=== PATIENT | male | born 1935 | race Caucasian/White ===

== ENCOUNTER → 2016-06-10 | Outpatient (CLI) | payer MEDICARE, OTHER ==
[2016-06-10 10:28] LABS: CHLORIDE,CL 105 mmol/L (98-110); SODIUM,NA 139 mmol/L (136-146)
== END ==
LOC: MW.CHIM 09:24
PROVIDERS: ATTEND Internal Medicine
DX: I10 Essential (primary) hypertension (principal); E11.9 Type 2 diabetes mellitus without complications; R97.20 Elevated prostate specific antigen [PSA]
CPT/HCPCS: 36415; 80053; 80061; 83036; 84153; 85025; 99214

== ENCOUNTER 2018-07-01 06:26 | Day surgery (SDC) | payer MEDICARE, OTHER ==
[~2018-07-01 06:26] MED LIST: Lactated Ringers 1,000 ML IV SCH; Sodium Chloride 0.9% 10 ML SDV IV PRN; Sodium Chloride 0.9% 2.5 ML Syringe FLUSH PRN
[2018-07-01] MEDS ORDERED: Bupivacaine 0.25% 10 ML SDV ONE (07:13)
[2018-07-01] MEDS ORDERED: Aspirin 81 MG Tab.Chew PO ONE (07:20)
--- NOTE | 2018-07-01 07:20 | PCM.PREANE ---
Preanesthetic Assessment - Anesthesia/Transfusion/Family Hx Anesthesia History: Prior Anesthesia Without Reaction Family History of Anesthesia Reaction: No Transfusion History: No Prior Transfusion(s) - Review of Systems General: No Symptoms Pulmonary: No Symptoms Cardiovascular: No Symptoms Gastrointestinal: No Symptoms Neurological: No Symptoms Other: Reports: None - Physical Assessment NPO Status Date: 06/30/18 Height: 6 ft 1 in Weight: 113.852 kg ASA Class: 3 Mental Status: Alert & Oriented x3 Airway Class: Mallampati = 2 Dentition: Reports: Normal Dentition ROM/Head Extension: Full Lungs: Clear to Auscultation, Normal Respiratory Effort Cardiovascular: Regular Rate, Regular Rhythm - Allergies Allergies/Adverse Reactions: Allergies Allergy/AdvReac Type Severity Reaction Status Date / Time codeine Allergy Rash Verified 06/29/18 09:41 Penicillins Allergy Rash Verified 06/29/18 09:41 contrast dye Allergy Rash Uncoded 06/29/18 09:41 - Blood Blood Available: No - Anesthesia Plan Pre-Op Medication Ordered: Other (asa pre op) - Acknowledgements Anesthesia Type Planned: General Anesthesia Pt an Appropriate Candidate for the Planned Anesthesia: Yes Alternatives and Risks of Anesthesia Discussed w Pt/Guardian: Yes Pt/Guardian Understands and Agrees with Anesthesia Plan: Yes Additional Comments: PMH: CAD- s/p AMI, s/p coronary stent 2003- on aspirin until 3-4 days ago, told to stop by surgeons office, [facility]- has hearing aids, CKD3, DM2- sugar this am 89 , htn, hld, BPH, prostate cancer PLAN: GET PreAnesthesia Questionnaire HEENT History: Reports: Cataract, Hard of Hearing, Other (See Below) Other HEENT History: has bilateral 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" Cardiovascular History: Reports: High Cholesterol, Hypertension, [place] Gastrointestinal History: Reports: Other (See Below) Other Gastrointestinal History: occasional heartburn- takes OTC meds Genitourinary History: Reports: BPH, Prostate Disorder, Renal Calculus Other Genitourinary History: hx of prostate cancer, passes all kidney stones Endocrine/Metabolic History: Reports: Diabetes, Type II, Obesity/BMI 30+ Oncologic (Cancer) History: Reports: Prostate - Past Surgical History Head Surgeries/Procedures: Reports: None HEENT Surgical History: Reports: Cataract Surgery Cardiovascular Surgical History: Reports: Coronary Artery Stent Other Cardiovascular Surgeries/Procedures: [place] 25 years ago- 2 stents inserted- no problems since GI Surgical History: Reports: Cholecystectomy - SUBSTANCE USE Smoking Status *Q: Never Smoker Recreational Drug Use History: No - HOME MEDS Home Medications: Home Meds Aspirin [Adult Low Dose Aspirin EC] 81 mg PO DAILY 06/29/18 [History] Carvedilol 3.125 mg PO DAILY 06/29/18 [History] Cholecalciferol (Vitamin D3) [Vitamin D3] 1,000 unit PO DAILY 06/29/18 [History] Cumin 500 mg PO DAILY 06/29/18 [History] Multivit-Min/FA/Lycopene/Lut [Centrum Silver Tablet] 1 tab PO DAILY 06/29/18 [ History] [place]-3/DHA/Epa/Fish Oil [[place] 3 500 Softgel] 1 cap PO BID 06/29/18 [History] Pravastatin Sodium 10 mg PO BID 06/29/18 [History] glipiZIDE [Glipizide ER] 5 mg PO QAM 06/29/18 [History] metFORMIN [Glucophage XR] 500 mg PO QAM 06/29/18 [History] - CURRENT (IN HOUSE) MEDS Current Meds: Current Medications Clindamycin Phosphate 400 mg/ (Sodium Chloride) 52.6667 mls @ 210.667 mls/hr IV ONETIME CHRIS Lactated Ringer's (Ringers, Lactated) 1,000 mls @ 100 mls/hr IV ASDIRECTED CHRIS Sodium Chloride (Saline Flush) 10 ml FLUSH ASDIRECTED PRN PRN Reason: Keep Vein Open Sodium Chloride (Saline Flush) 2.5 ml FLUSH ASDIRECTED PRN PRN Reason: Keep Vein Open Sodium Chloride (Normal Saline) 10 ml IV ASDIRECTED PRN PRN Reason: IV Use Discontinued Medications Bupivacaine HCl (Sensorcaine-Mpf 0.25%) Confirm Administered Dose 10 ml .ROUTE .STK-MED ONE Stop: 07/01/18 07:14
[2018-07-01] MEDS ORDERED: fentaNYL 250 MCG/5 ML SDV ONE (07:28)
[2018-07-01] MEDS ORDERED: Aspirin 81 MG Tab.Chew ONE (07:28)
[2018-07-01] MEDS ORDERED: Propofol 200 MG/20 ML SDV ONE (07:28)
[2018-07-01] MEDS ORDERED: CLINDAMYCIN PHOSPHATE IV SCH ×2 (07:50→09:00)
[2018-07-01] MEDS ORDERED: SODIUM CHLORIDE 0.9% IV SCH ×2 (07:50→09:00)
[2018-07-01] MEDS ORDERED: Clindamycin Phosphate in D5W 50 ML IV ONE (08:30)
[2018-07-01] MEDS ORDERED: Phenylephrine/Normal Saline 100 MCG/ML 10 ML Syringe ONE (08:44)
[2018-07-01] MEDS ORDERED: ePHEDrine 50 MG/ML SDV ONE (08:57)
[2018-07-01] MEDS ORDERED: Ondansetron 4 MG/2 ML SDV ONE (08:57)
[2018-07-01] MEDS ORDERED: Atropine 1 MG/ML SDV IVPUSH PRN ×2 (09:31)
[2018-07-01] MEDS ORDERED: Naloxone 0.4 MG/ML Syringe IVPUSH PRN (09:31)
[2018-07-01] MEDS ORDERED: 50% Dextrose in Water 50 ML Syringe IVPUSH PRN (09:31)
[2018-07-01] MEDS ORDERED: fentaNYL 100 MCG/2 ML SDV IVPUSH PRN (09:31)
[2018-07-01] MEDS ORDERED: Albuterol 0.083% 2.5 MG/3 ML Neb Soln NEB PRN (09:31)
[2018-07-01] MEDS ORDERED: EPINEPHrine 1 MG/1 ML Amp IVPUSH PRN (09:31)
--- NOTE | 2018-07-01 10:02 | PCM.POSTAN ---
POST ANESTHESIA ASSESSMENT - MENTAL STATUS Mental Status: Alert, Oriented - VITAL SIGNS Pulse Rate: 83 SaO2: 96 (room air) Resp Rate: 13 Blood Pressure: 133/75 - RESPIRATORY Respiratory Status: Respiratory Rate WNL, Airway Patent, O2 Saturation Stable - CARDIOVASCULAR CV Status: Pulse Rate WNL, Blood Pressure Stable - GASTROINTESTINAL GI Status: No Symptoms - PAIN Pain Score: 0 (comfortable, no pain) - POST OP HYDRATION Hydration Status: Adequate & Stable - OBSERVATIONS Free Text/Narrative:: No anesthesia complication noted. Pt comfortable. No complaints.
--- NOTE | 2018-07-01 11:04 | OR ---
SURGEON: Jeronimo Steele M.D. 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 POSTOPERATIVE DIAGNOSIS: Adenoid carcinoma of the prostate. OPERATION: Bilateral simple orchiectomy. DESCRIPTION OF PROCEDURE: The patient was given general anesthesia in the supine position. External genital area was prepped and draped in sterile drapes. A transverse incision was made in the right scrotal sac. The testicle was delivered to the outside. The cord structures were suture ligated with 0 chromic x2. That cord was sutured in 2 bites. With that done, the skin was then closed using 3-0 chromic interrupted mattress sutures. The left side was handled in the same fashion. Again, 0 chromic was used for suture ligature over the cord structures and the skin was closed in the same way. The specimens were delivered and the patient was moved to recovery room in good condition. RUDY / ZOIE /[id number]
--- NOTE | 2018-07-01 11:12 | PCM48HPAN ---
Post Anesthesia Note - EVALUATION WITHIN 48HRS OF ANESTHETIC Vital Signs in Normal Range: Yes Patient Participated in Evaluation: Yes Respiratory Function Stable: Yes Airway Patent: Yes Cardiovascular Function Stable: Yes Hydration Status Stable: Yes Pain Control Satisfactory: Yes Nausea and Vomiting Control Satisfactory: Yes Mental Status Recovered: Yes Pulse Rate: 83 Resp Rate: 16 Blood Pressure: 133/75
[2018-07-01] MEDS ORDERED: Sodium Chloride 0.9% 10 ML Syringe FLUSH PRN (13:35)
[2018-07-01] MEDS ORDERED: Non-Formulary Medication 1 Each (Pravastatin Sodium [Pravastatin Sodium] 10 MG) PO SCH (21:00)
[2018-07-01] MEDS ORDERED: Fish Oil/Omega-3 Fatty Acids 1 Gm Cap PO SCH (21:00)
[2018-07-02] MEDS ORDERED: [UNRECOGNIZED DRUG - OTHER] PO SCH (09:00)
[2018-07-02] MEDS ORDERED: MULTIVIT MIN PO SCH (09:00)
[2018-07-02] MEDS ORDERED: Aspirin 81 MG Tab.EC PO SCH (09:00)
[2018-07-02] MEDS ORDERED: Cholecalciferol (Vitamin D3) 1,000 Unit Tab PO SCH (09:00)
[2018-07-02] MEDS ORDERED: metFORMIN 500 MG Tab.ER PO SCH (09:00)
[2018-07-02] MEDS ORDERED: Carvedilol 3.125 MG Tab PO SCH (09:00)
[2018-07-02] MEDS ORDERED: LYCOPENE PO SCH (09:00)
[2018-07-02] MEDS ORDERED: glipiZIDE 5 MG Tab.ER PO SCH (09:00)
[2018-07-02] MEDS ORDERED: LUT PO SCH (09:00)
[2018-07-02] MEDS ORDERED: [UNRECOGNIZED DRUG - OTHER] PO SCH (09:00)
== END 2018-07-01 11:35 | disposition home or self-care (01) ==
LOC: MW.SDS 06:26
PROVIDERS: ATTEND Urology
DX: C61 Malignant neoplasm of prostate (principal); Z88.5 Allergy status to narcotic agent; Z88.0 Allergy status to penicillin; Z91.041 Radiographic dye allergy status; E11.9 Type 2 diabetes mellitus without complications
CPT/HCPCS: 54520; 82962; 88305; A9270; J2370; J2405; J2704; J3010; J3490; J7120; 00920